=== PATIENT | male | born 1985 | race Asian ===

== ENCOUNTER 2021-05-24 13:30 | Emergency (ER) | payer OTHER ==
[2021-05-24 13:56] VITALS: BP 140/80
--- NOTE | 2021-05-24 15:00 | ED Physician Documentation ---
PD HPI LOWER EXT INJURY - Stated complaint Stated Complaint: LT FT SWOLLEN - Chief complaint Chief Complaint: Ext Problem - History obtained from History obtained from: Patient (36-year-old gentleman without any known medical problems presents with pain of the left first MTP that is been going on for about 3 days and then swelling today. He has had similar episodes of pain in the past but not with the swelling. No previous diagnosis of gout. No fevers. No injury.) Review of Systems Constitutional: reports: Reviewed and negative Eyes: reports: Reviewed and negative Ears: reports: Reviewed and negative Nose: reports: Reviewed and negative Throat: reports: Reviewed and negative Cardiac: reports: Reviewed and negative PD PAST MEDICAL HISTORY - Present Medications Home Medications: Ambulatory Orders Medication Instructions Recorded Confirmed HYDROcod/ACETAM 5/325 [Spal[place] 5/325] 1 - 2 tab PO Q6H PRN #10 tablet 05/24/21 Indomethacin [Indocin] 25 mg PO BIDWM #10 05/24/21 predniSONE [Deltasone] 60 mg PO DAILY 5 Days #15 tablet 05/24/21 - Allergies Allergies/Adverse Reactions: Allergies Allergy/AdvReac Type Severity Reaction Status Date / Time No Known Drug Allergies Allergy Verified 05/24/21 13:54 PD ED PE NORMAL - Vitals Vital signs reviewed: Yes - General General: Alert and oriented X 3, No acute distress - Extremities Extremities: Other (Tender swollen and erythematous about the first MTP with pain with dorsiflexion of the first digit of the left foot.) - Neuro Neuro: Alert and oriented X 3, Normal speech Results - Vitals Vitals: Vital Signs - 24 hr 05/24/21 13:54 Temperature 36.6 C Heart Rate 90 Respiratory 16 Rate Blood Pressure 140/80 H O2 Saturation 97 Oxygen O2 Source Room air - Labs Labs: Laboratory Tests 05/24/21 05/24/21 15:18 15:18 WBC 7.8 RBC 5.31 Hgb 15.5 Hct 46.0 MCV 86.6 MCH 29.2 MCHC 33.7 RDW 12.4 Plt Count 221 MPV 9.6 Neut # (Auto) 5.3 Lymph # (Auto) 1.7 Greene # (Auto) 0.6 Eos # (Auto) 0.2 Baso # (Auto) 0.0 Absolute Nucleated RBC 0.00 Nucleated RBC % 0.0 Sodium 139 Potassium 3.9 Chloride 102 Carbon Dioxide 28 Anion Gap 9.0 BUN 17 Creatinine 1.5 H Estimated GFR (MDRD) 53 L Glucose 114 H Uric Acid 9.0 H Calcium 9.4 PD MEDICAL DECISION MAKING - ED course ED course: 36-year-old gentleman with what seems consistent with gouty arthritis. Uric acid level was quite elevated consistent with the diagnosis. No evidence of infection. Diagnosis: 1. Left foot Podagra Departure - Departure Disposition: Home, Self Care Condition: Good Record reviewed to determine appropriate education?: Yes Instructions: ED Diet Gout, ED Arthritis Gout Prescriptions: predniSONE [Deltasone] 60 mg PO DAILY 5 Days #15 tablet Indomethacin [Indocin] 25 mg PO BIDWM #10 HYDROcod/ACETAM 5/325 [[place] 5/325] 1 - 2 tab PO Q6H PRN #10 tablet PRN Reason: Pain Comments: You were seen today for an exacerbation of gout. The medication should help with that. We noted you to have mildly decreased renal function with a creatinine of 1.5 and a GFR of 53. This mandates follow-up with your physician. You also had a very high uric acid level which is consistent with a diagnosis of gout. The medications should help, follow-up with your doctor and discuss starting allopurinol, but you do not want to start it during the flare as it will make the flare worse.
[2021-05-24 15:23] LABS: BASOPHILS % (AUTO) 0.5 %; EOSINOPHILS # (AUTO) 0.2 10^3/uL (0.0-0.7); EOSINOPHILS % (AUTO) 2.1 %; HGB - HEMOGLOBIN 15.5 g/dL (14.0-18.0); LYMPHOCYTES # (AUTO) 1.7 10^3/uL (1.5-3.5); LYMPHOCYTES % (AUTO) 21.5 %; MEAN CORPUSCULAR HEMOGLOBIN 29.2 pg (27.0-31.0); MEAN CORPUSCULAR HGB CONC 33.7 g/dL (32.0-36.0); MEAN CORPUSCULAR VOLUME 86.6 fL (80.0-94.0); MEAN PLATELET VOLUME 9.6 fL (7.4-11.4); MONOCYTES # (AUTO) 0.6 10^3/uL (0.0-1.0); MONOCYTES % (AUTO) 7.7 %; NEUTROPHILS # (AUTO) 5.3 10^3/uL (1.5-6.6); NEUTROPHILS % (AUTO) 67.9 %; PLT - PLATELET COUNT 221 10^3/uL (130-450); RED BLOOD COUNT 5.31 10^6/uL (4.70-6.10); RED CELL DISTRIBUTION WIDTH 12.4 % (12.0-15.0); WHITE BLOOD COUNT 7.8 x10^3/uL (4.8-10.8)
[2021-05-24 15:35] LABS: CALCIUM 9.4 mg/dL (8.5-10.3); CREATININE 1.5 mg/dL (0.6-1.2); POTASSIUM 3.9 mmol/L (3.5-5.0)
[2021-05-24] MEDS ORDERED: COLCHICINE 0.6 MG TABLET PO STA (15:37)
[2021-05-24] MEDS ORDERED: predniSONE 20 MG TABLET PO STA (15:37)
== END 2021-05-24 15:51 | disposition home or self-care (01) ==
LOC: EDSEX → ED 13:30
DX: M10.9 Gout, unspecified (principal)
CPT/HCPCS: 36415; 80048; 84550; 85025; 99283; A9270; J7512